=== PATIENT | male | born 1940 | race Two or more races ===

== ENCOUNTER → 2023-07-01 | Emergency (ER) | payer OTHER ==
[~2023-07-01] VITALS: Ht 170.2 cm; Wt 64.9 kg
[~2023-07-01] MED LIST: ADULT LOW DOSE81 M1 PO; CARBAMAZEPINE200 M3 PO; DIALYVITE 8001 EAC1 PO; KEPPRA500 MG PO; LIPITOR40 M1 PO; MONTELUKAST SODI4 M1 PO; MULTI VITAMIN1 EACH PO; OMEPRAZOLE MAGN20 MG PO; PLAVIX75 MG PO; QUETIAPINE FUM400 M1 PO; TAMS0.4C PO; ZESTRIL5 MG PO
== END | disposition left against medical advice (07) ==
LOC: ER 16:07
DX: Z53.21 Procedure and treatment not carried out due to patient leaving prior to being seen by health care provider (principal)